=== PATIENT | male | born 1975 | race Caucasian/White ===

== ENCOUNTER 2020-03-16 05:33 | Emergency (ER) | payer SELFPAY ==
[2020-03-16 06:29] LABS: #Eosinphils 0.1 thou/uL (0.0-0.7); #Lymphocytes 1.4 thou/uL (1.20-3.40); #Monocytes 1.4 thou/uL (0.11-0.59); #Neutrophils 13.8 thou/uL (1.40-6.50); %Basophils 0.1 % (0.0-1.0); %Eosinophils 0.4 % (0.0-10.0); %Lymphocytes 8.2 % (21.0-51.0); %Monocytes 8.4 % (0.0-10.0); Mean Corpuscular HGB CONC 33.5 g/dL (32.0-36.0); Mean Corpuscular Hemoglobin 30.5 pg (27.0-31.0); Mean Corpuscular Volume 90.9 fL (78.0-98.0); Mean Platelet Volume 7.6 fL (7.4-10.4); Platelet Count 295 thou/uL (130-400); RBC Distribution Width 11.7 % (11.5-14.5); Red Blood Cell (RBC) Count 5.26 mill/uL (4.70-6.10); White Blood Cell (WBC) Count 16.7 thou/uL (4.8-10.8)
[2020-03-16 06:30] LABS: Bilirubin Negative (Negative); Blood, Urine 3+ (Negative); Clarity Clear (Clear); Glucose, Urine (Dipstick) Normal (Negative); Ketone, Urine 60 mg/dL (Negative); Leukocyte Negative Leu/uL (Negative); Nitrite Negative (Negative); Protein, Urine (Dipstick) 20 mg/dL (Neg-Trace); RBC/HPF Greater than 50 HPF (0-3); Specific Gravity, Urine 1.026 (1.002-1.036); Squamous Epithelial None Seen HPF (0-3); WBC/HPF 0-3 HPF (0-3)
[2020-03-16 06:39] LABS: Bacteria/HPF 1+ HPF (None Seen)
[2020-03-16 06:48] LABS: ALT (SGPT) 16 U/L (8-55); AST (SGOT) 13 U/L (5-34); Albumin 4.4 g/dL (3.5-5.0); Alkaline Phosphatase 106 U/L (40-110); Anion Gap 14 mmol/L (10-20); BUN (Urea Nitrogen) 14 mg/dL (8.9-20.6); Bilirubin, Total 1.3 mg/dL (0.2-1.2); Calc. Creatinine Clearance 0 mL/min (70-130); Calcium 9.6 mg/dL (7.8-10.44); Carbon Dioxide 20 mmol/L (22-29); Chloride 103 mmol/L (98-107); Estimated GFR-MDRD 56; Globulin 2.8 g/dL (2.4-3.5); Glucose 122 mg/dL (70-105); Lipase 8 U/L (8-78); Potassium 3.7 mmol/L (3.5-5.1); Protein, Total 7.2 g/dL (6.0-8.3); Sodium 133 mmol/L (136-145)
[2020-03-16] MEDS ORDERED: Ketorolac Tromethamine 30 MG/ML VIAL ONE (06:51)
[2020-03-16] MEDS ORDERED: Morphine 4 MG/ML VIAL ONE (06:51)
[2020-03-16] MEDS ORDERED: Ondansetron PF 4 MG/2 ML Vial ONE (06:51)
[2020-03-16] MEDS ORDERED: HYDROcodone/Acetaminophen 5/325 mg Tablet ONE (07:22)
--- NOTE | 2020-03-16 09:18 | CT ---
CT OF THE ABDOMEN AND PELVIS WITHOUT IV CONTRAST: INDICATION: History of right-sided flank pain. COMPARISON: None. FINDINGS: There is mild bibasilar atelectasis. The unopacified liver has a tiny hypodensity within segment of the right hepatic lobe measuring appro ximately 5 mm. Unopacified gallbladder is unremarkable-appearing. Unopacified pancreas, spleen, and adrenal glands appear within normal limits. There are multiple right-sided nonobstructing renal calculi measuring between 2-3 mm. There is mild hydronephrosis or perinephric stranding. There is a 3.3 mm stone at the right UVJ. There is a 3 mm calculus within the left mid kidney. An additional 2 mm calculus is seen within the left mid kidney. There are mild vascular calcifications involving the abdominal aorta. The unopacified large and small bowel are unremarkable-appearing. There is a normal appendix in the right lower quadrant. There is a Palma catheter in place. Rectum and perirectal soft tissues are unremarkable-appearing. No acute osseous abnormality is evident. IMPRESSION: 1. Bilateral nephrolithiasis with a 3.3 mm stone at the right ureterovesical junction inducing mild right hydronephrosis. 2. Too small to characterize hypodensity within the right hepatic dome. 3. Palma catheter. 4. Vascular calcification of the abdominal aorta. POS: BH
== END 2020-03-16 08:22 | disposition home or self-care (01) ==
LOC: ERS 05:33
DX: N13.2 Hydronephrosis with renal and ureteral calculous obstruction (principal)
CPT/HCPCS: 36415; 74176; 80053; 81003; 81015; 83690; 85025; J1885; J2270; J2405